=== PATIENT | male | born 1940 | race Caucasian/White ===

== ENCOUNTER → 2018-05-16 | Outpatient (CLI) | payer OTHER, MEDICARE ==
[~2018-05-16] MED LIST: COZAAR 50 MG TA50 M2 PO; LIPITOR10 MG PO; ZOLOFT50 MG PO
--- NOTE | ~2018-05-16 | 2DMMODE ---
[facility] [place] [address] 2 D/M-MODE ECHOCARDIOGRAM Name: VINEET CARRINGTON Room #: REG CL [facility]#: [id number] Admission: 05/16/18 Attend Phys: Blaze Gaines Discharge: Date of : 42 Date of Service: 05/16/18 1421 Report #: [id number] THIS REPORT FOR: //name// APPROVED REPORT Study performed: 05/16/2018 13:06:14 EXAM: Comprehensive 2D, Doppler, and color-flow Echocardiogram Patient Location: Echo lab Status: routine BSA: 1.97 HR: 62 bpm BP: 144/78 mmHg Rhythm: NSR Other Information Study Quality: Good Indications Pre-OP, pacemaker 2D Dimensions RVDd: 32.21 mm LVEF(%): 62.00 (>50%) IVSd: 13.31 (7-11mm) LVOT Diam: 20.15 (18-24mm) LVDd: 44.80 mm PWd: 8.86 (7-11mm) Ascending Ao: 31.69 (22-36mm) LVDs: 29.92 (25-40mm) Aortic Root: 35.96 mm Padilla's LVEF: 62.00 % Volumes Left Atrial Volume (Systole) Single Plane 4CH: 52.21 mL Single Plane 2CH: 59.09 mL LA ESV Index: 30.00 mL/m2 Aortic Valve AoV Peak Arron.: 2.63 m/s AO Peak Gr.: 18.71 mmHg LVOT Max P.76 mmHg AO Mean Gr.: 15.64 mmHg AO V2 Mean: 1.87 m/s LVOT Max V: 1.85 m/s AO V2 VTI: 53.62 cm VANESSA Vmax: 2.25 cm2 Mitral Valve [facility] [place] [address] 2 D/M-MODE ECHOCARDIOGRAM Name: VINEET CARRINGTON Room #: REG [facility].#: [id number] Admission: 05/16/18 Attend Phys: Blaze Gaines Discharge: Date of : 42 Date of Service: 05/16/18 1421 Report #: [id number] E/A Ratio: 0.6 MV Decel. Time: 259.14 ms MV E Max Arron.: 0.65 m/s MV A Arron.: 1.17 m/s MV PHT: 75.15 ms IVRT: 101.50 ms Pulmonary Valve PV Peak Arron.: 1.40 m/s PV Peak Gr.: 7.80 mmHg Pulmonary Vein P Vein S: 0.69 m/s P Vein A: 0.28 m/s P Vein D: 0.52 m/s P Vein A Dur.: 166.1 msec P Vein S/D Ratio: 1.33 Tricuspid Valve TR Peak Arron.: 2.94 m/s RAP Estimate: 5.00 mmHg TR Peak Gr.: 34.47 mmHg PA Pressure: 40.00 mmHg Left Ventricle The left ventricle is normal size. There is normal LV segmental wall motion. Moderate basal septal hypertrophy is present. The left ventricular systolic function is normal. LVEF is 65-70%. Grade I - abnormal relaxation pattern. Right Ventricle The right ventricle is normal size. The right ventricular systolic function is normal. Moderator band is seen in the right ventricle. Atria The left atrium size is normal. The right atrium size is normal. Aortic Valve Aortic valve is mildly calcified. Mild aortic regurgitation. There is no aortic valvular stenosis. Mitral Valve The mitral valve is normal in structure. Trace to mild mitral regurgitation. No evidence of mitral valve stenosis. Tricuspid Valve The tricuspid valve is normal in structure. Mild tricuspid regurgitation.Estimated PAP is 40 mmHg. [facility] [address] [place] [address] 2 D/M-MODE ECHOCARDIOGRAM Name: VINEET CARRINGTON Room #: REG [facility]#: [id number] Admission: 05/16/18 Attend Phys: Blaze Gaines Discharge: Date of : 42 Date of Service: 05/16/18 1421 Report #: [id number] Pulmonic Valve Pulmonic valve is not well visualized. Trace pulmonic regurgitation. Great Vessels The aortic root is normal in size. The ascending aorta is normal in size. IVC is normal in size and collapses >50% with inspiration. Pericardium There is no pericardial effusion. <Conclusion> The left ventricle is normal size. LVEF is 65-70%. The right ventricle is normal size. The right ventricular systolic function is normal. Moderator band is seen in the right ventricle. Aortic valve is mildly calcified. Mild aortic regurgitation. There is no aortic valvular stenosis. The mitral valve is normal in structure. Trace to mild mitral regurgitation. The tricuspid valve is normal in structure. Mild tricuspid regurgitation.Estimated PAP is 40 mmHg. Pulmonic valve is not well visualized. Trace pulmonic regurgitation. There is no pericardial effusion. <ELECTRONICALLY SIGNED> By: Louie Chung MD 05/16/18 1421 [id number] Louie Chung MD /INF
== END ==
LOC: CV 12:19
DX: Z01.818 Encounter for other preprocedural examination (principal); I08.3 Combined rheumatic disorders of mitral, aortic and tricuspid valves; Z95.0 Presence of cardiac pacemaker

== ENCOUNTER → 2019-03-13 | Outpatient (CLI) | payer OTHER, MEDICARE | LOC: NUC 07:38 | DX: I48.91 Unspecified atrial fibrillation (principal); E78.5 Hyperlipidemia, unspecified; I10 Essential (primary) hypertension; Z95.0 Presence of cardiac pacemaker ==

== ENCOUNTER → 2020-01-16 | Outpatient (CLI) | payer OTHER, MEDICARE | LOC: SJCVC 15:09 | DX: Z45.018 Encounter for adjustment and management of other part of cardiac pacemaker (principal); R94.31 Abnormal electrocardiogram [ECG] [EKG]; I48.0 Paroxysmal atrial fibrillation; I10 Essential (primary) hypertension; E78.5 Hyperlipidemia, unspecified; E78.00 Pure hypercholesterolemia, unspecified; G90.01 Carotid sinus syncope; Z79.899 Other long term (current) drug therapy ==

== ENCOUNTER → 2021-03-03 | Outpatient (CLI) | payer OTHER, MEDICARE | LOC: SJCVC 14:26 | PROVIDERS: ATTEND Internal Medicine Cardiovascular Disease | DX: I48.0 Paroxysmal atrial fibrillation (principal); R00.1 Bradycardia, unspecified; I10 Essential (primary) hypertension; E78.5 Hyperlipidemia, unspecified; E78.00 Pure hypercholesterolemia, unspecified; Z95.0 Presence of cardiac pacemaker; Z98.890 Other specified postprocedural states; Z79.899 Other long term (current) drug therapy; Z82.49 Family history of ischemic heart disease and other diseases of the circulatory system ==

== ENCOUNTER → 2021-07-08 | Outpatient (CLI) | payer OTHER, MEDICARE | LOC: SJCVC 15:12 | PROVIDERS: ATTEND Internal Medicine Cardiovascular Disease | DX: R94.31 Abnormal electrocardiogram [ECG] [EKG] (principal); I21.9 Acute myocardial infarction, unspecified; I48.3 Typical atrial flutter; I10 Essential (primary) hypertension; E78.5 Hyperlipidemia, unspecified; I48.91 Unspecified atrial fibrillation; Z86.16 Personal history of COVID-19; E78.00 Pure hypercholesterolemia, unspecified; Z95.0 Presence of cardiac pacemaker; Z79.899 Other long term (current) drug therapy; Z82.49 Family history of ischemic heart disease and other diseases of the circulatory system ==

== ENCOUNTER → 2021-07-20 | Outpatient (CLI) | payer OTHER, MEDICARE ==
[~2021-07-20] VITALS: Ht 170.2 cm; Wt 83.2 kg
[~2021-07-20] MED LIST changes: +COZAAR 50 MG TA50 M1 PO; +CYMBALTA60 MG PO; +ELIQUIS5 MG PO; +FLOMAX0.4 MG PO
[2021-07-20 11:16] LABS: ABSOLUTE NEUTROPHILS 1.8 thou/uL (1.4-8.2); BASOPHILS 1.2 % (0.0-2.0); EOSINOPHILS 1.8 % (0.0-3.0); HEMATOCRIT 37.8 % (42.0-52.0); HEMOGLOBIN 12.6 gm/dL (14.0-18.0); LYMPHOCYTES 39.9 % (24.0-44.0); MCH 29.2 pg (26.0-34.0); MCHC 33.2 g/dL (28.0-37.0); MCV 88.1 fL (80.0-100.0); MONOCYTES 12.2 % (1.0-8.0); PLATELET COUNT 280 thou/uL (150-400); POLYS 44.9 % (36.0-66.0)
[2021-07-20 11:24] LABS: CALCIUM 8.7 mg/dL (8.5-10.1); POTASSIUM 4.3 mmol/L (3.5-5.1)
[2021-07-20 11:29] LABS: ALBUMIN 2.8 g/dL (3.4-5.0); TOTAL BILIRUBIN 0.5 mg/dL (0.2-1.0); TOTAL PROTEIN 7.3 g/dL (6.4-8.2)
[2021-07-20 11:32] LABS: APTT 28.5 Seconds (24.5-32.8); INR 1.14; PROTIME 12.4 Seconds (10.5-12.1)
[2021-07-20 11:46] VITALS: BP 118/78
--- NOTE | 2021-07-21 08:44 | P ---
[facility] [address] PROCEDURE REPORT Name: VINEET CARRINGTON Room #: REG [facility].#: [id number] Admission: 07/20/21 Attend Phys: Blaze Gaines MD Discharge: Date of : 42 Report #: [id number] THIS REPORT FOR: cc: FAM - No family physician/PCP FAM - No family physician/PCP Blaze Gaines MD ~ DATE OF SERVICE: 07/20/2021 PREOPERATIVE DIAGNOSIS: Typical AVNRT. POSTOPERATIVE DIAGNOSIS: Cavotricuspid isthmus dependent flutter. HISTORY: The patient is an 81-year-old with a history of vasovagal syncope, status post prior pacemaker implantation. 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 He was recently diagnosed with atrial flutter in the setting of hospitalization for COVID pneumonia. He is here for atrial flutter ablation. ANESTHESIA: The patient underwent MAC anesthesia with no anesthesia related complications. PROCEDURE PERFORMED: 1. Preprocedural pacemaker reprogramming, CPT code 93865. 2. SVT ablation -- CPT code 37452. 3. EP with left atrial pacing reporting CPT code 17982. 4. Intracardiac echo, CPT code 31121. 5. The 3D mapping, CPT code 29269. 6. Post-procedural pacemaker reprogramming, CPT code 18956. DESCRIPTION OF PROCEDURE: The patient underwent MAC anesthesia with no anesthesia related complications. PROCEDURE: The patient underwent informed consent. We discussed the details of the procedure including the risks, which include but not limited to bleeding, vascular damage, stroke, NH, cardiac perforation, damage to the preexisting pacemaker. The patient understood these risks and is willing to proceed. He was brought to the EP laboratory in fasting and sedated state, prepped and draped in standard fashion. I obtained access to the right femoral vein x 3, placing an 8, 9, and 7-Slovak short sheath. I then placed an ICE catheter into the right atrium to create 3D geometry and then placed a Decapolar catheter in the coronary sinus for left atrial pacing and recording. Next, the patient was noted to be in atrial flutter with a ventricular cycle length of 505 milliseconds and atrial cycle length of 245 milliseconds and proximal and distal activation along the CS. The QRS duration was 60 milliseconds and the QT interval was 315 milliseconds. Next, using an 8 mm ablation catheter, a 3D geometry of the right atrium was created and an activation map was also [facility] [address] [place] [address] PROCEDURE REPORT Name: VINEET CARRINGTON Room #: REG [facility]#: [id number] Admission: 07/20/21 Attend Phys: Blaze Gaines MD Discharge: Date of : 42 Report #: [id number] performed, which showed that we had counterclockwise cavotricuspid isthmus dependent flutter. Next, the ablation catheter was placed via a ramp sheath into the right atrium and ablation was performed at 6 o' clock along the cavotricuspid isthmus. A continuous drag lesion was performed until I reached the distal third of the isthmus and then there was termination of atrial flutter. I continued ablating until I fell into the inferior vena cava. I performed 2 additional lines along this region and then postablation testing was performed and the transisthmus conduction time pacing from CS 9, 10 was 145 milliseconds and pacing from the ablation lateral to the line was 170 milliseconds with an activation sequence consistent with bidirectional block. Next, a basic EP study was performed and AV block was noted at 380 milliseconds. AV katie ERP was noted at 330 milliseconds and [address] cycle length and atrial burst pacing was performed down to 240 milliseconds. I could not induce any atrial flutter, nor any other forms of SVT. As such, I re-interrogated her pacemaker and performed threshold testing. Atrial lead demonstrated a threshold of 0.5 milliseconds. The ventricular lead was tested and at high output. Again, there was no evidence of capture, which is a chronic issue. The device was programmed from the AAI mode to the AAIR mode at 60-130 to give him some rate response. As such, the procedure was concluded. Catheters and sheaths were pulled and hemostasis was obtained and there was no intracardiac evidence of a pericardial effusion. CONCLUSIONS: 1. Successful atrial flutter ablation with bidirectional block. 2. Normal EP study with no inducible arrhythmias. 3. Successful pacemaker reprogramming. <ELECTRONICALLY SIGNED> By: Blaze Gaines MD 07/21/21 0844 [id number] [id number] Blaze Gaines MD /nt
== END | disposition home or self-care (01) ==
LOC: CATH 08:56
PROVIDERS: ATTEND Internal Medicine Cardiovascular Disease
DX: I48.3 Typical atrial flutter (principal); I10 Essential (primary) hypertension; E78.00 Pure hypercholesterolemia, unspecified; Z98.890 Other specified postprocedural states; Z79.899 Other long term (current) drug therapy; Z79.01 Long term (current) use of anticoagulants; Z96.651 Presence of right artificial knee joint; Z95.0 Presence of cardiac pacemaker
CPT/HCPCS: 62110; 62900; 70005